=== PATIENT | female | born 1950 | race African-American/Black ===

== ENCOUNTER → 2020-11-29 | Day surgery (SDC) | payer MEDICARE, MEDICAID ==
[~2020-11-29] VITALS: Ht 170.2 cm; Wt 68.0 kg
[~2020-11-29] MED LIST: BALANCED SALT IRRIG SOLN COMB1 500ML OP NR; CYCLOPENTOLATE HCL 1% OPHTH DROPS 2ML ONE; CYCLOPENTOLATE HCL 1% OPHTH DROPS 2ML RIGHTEYE ONE; DULO60CA44 PO; FENTANYL CITRATE/PF 50MCG/ML 2ML VIAL ONE; GABA-290 PO; HYALURONATE SODIUM 10 MG/ML 0.55ML SYRINGE IO ONE; KETOROLAC 30MG/ML VIAL ONE; LACTATED RINGERS 1,000 ML IV SCH; MIDAZOLAM HCL 2 MG/2 ML VIAL ONE; OXYC-105 PO; PHENYLEPHRINE HCL 10% OPHTH DROPS 5ML ONE; PHENYLEPHRINE HCL 10% OPHTH DROPS 5ML RIGHTEYE ONE; TIZA4TAB5 MT; TROPICAMIDE 1% OPHTH DROPS 15ML ONE; TROPICAMIDE 1% OPHTH DROPS 15ML RIGHTEYE ONE; TRYPAN BLUE 0.5 ML DISP.SYRIN IO ONE
== END | disposition home or self-care (01) ==
LOC: OR 08:05
PROVIDERS: ATTEND Ophthalmology
DX: H25.89 Other age-related cataract (principal); I10 Essential (primary) hypertension; Z79.899 Other long term (current) drug therapy; Z90.710 Acquired absence of both cervix and uterus; Z98.890 Other specified postprocedural states; Z20.822 Contact with and (suspected) exposure to COVID-19
CPT/HCPCS: 66984; 87426; J1885; J2250; J3010; J3490; Q9957; V2632

== ENCOUNTER → 2021-05-09 | Day surgery (SDC) | payer MEDICARE, MEDICAID ==
[~2021-05-09] VITALS: Ht 170.2 cm; Wt 75.7 kg
[~2021-05-09] MED LIST changes: +AMLO10TA80 MT; +BALANCED SALT IRRIG SOLN 15ML ONE; -BALANCED SALT IRRIG SOLN COMB1 500ML OP NR; +BALANCED SALT IRRIG SOLN COMB1 500ML OP ONE; +CIPROFLOXACIN 0.3% OPHTH SOLN 2.5ML ONE; +CYCLOPENTOLATE HCL 1% OPHTH DROPS 2ML LEFTEYE NR; -CYCLOPENTOLATE HCL 1% OPHTH DROPS 2ML RIGHTEYE ONE; +DULO60CA44 MT; -DULO60CA44 PO; +KETAMINE HCL 50 MG/ML 10ML ONE; -KETOROLAC 30MG/ML VIAL ONE; -LACTATED RINGERS 1,000 ML IV SCH; +LIDOCAINE HCL 2%/EPINEPHRINE 1:100,000 20 ML VIAL INFIL ONE; +LIDOCAINE HCL/PF 1% 10 MG/ML 5ML VIAL ONE; +LIDOCAINE HCL/PF 2% 20 MG/ML 10ML VIAL ONE; +NEO/POLYMYX B SULF/DEXAMETH OPHTH OINT 3.5GM ONE; +PHENYLEPHRINE HCL 10% OPHTH DROPS 5ML LEFTEYE NR; -PHENYLEPHRINE HCL 10% OPHTH DROPS 5ML RIGHTEYE ONE; +PREDNISOLONE ACETATE 1% OPHTH DROPS 5ML ONE; +PROPOFOL 200MG/20ML VIAL IV ONE; +SODIUM CHLORIDE 0.9% 1,000 ML IV SCH; +TETRACAINE 0.5% OPHTH DROPS 4ML ONE; +TROPICAMIDE 1% OPHTH DROPS 15ML LEFTEYE NR; -TROPICAMIDE 1% OPHTH DROPS 15ML RIGHTEYE ONE; -TRYPAN BLUE 0.5 ML DISP.SYRIN IO ONE
== END | disposition home or self-care (01) ==
LOC: OR 05:50
PROVIDERS: ATTEND Ophthalmology
DX: H25.89 Other age-related cataract (principal); G89.4 Chronic pain syndrome; I10 Essential (primary) hypertension; Z79.899 Other long term (current) drug therapy; Z98.890 Other specified postprocedural states; Z88.5 Allergy status to narcotic agent; Z20.822 Contact with and (suspected) exposure to COVID-19
CPT/HCPCS: 66984; 82962; 87426; J2250; J2704; J3010; J3490; V2632